=== PATIENT | male | born 1995 | race African-American/Black ===

== ENCOUNTER 2018-08-09 19:40 | Emergency (ER) | payer SELFPAY ==
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
[2018-08-09 20:29] VITALS: BP 147/92
== END 2018-08-09 20:30 | disposition home or self-care (01) ==
LOC: ED 19:40
DX: Z04.1 Encounter for examination and observation following transport accident (principal); Z88.0 Allergy status to penicillin
CPT/HCPCS: 99282

== ENCOUNTER 2019-11-06 11:05 | Emergency (ER) | payer SELFPAY ==
[2019-11-06 11:40] VITALS: BP 158/84
--- NOTE | 2019-11-06 11:49 | UC ---
Cardiac HPI - HPI Summary HPI Summary: This is a 23-year-old -[place] male with a complaint of transient left chest discomfort and dizziness beginning approximately 90 minutes prior to coming to the Urgent Care Center. 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 He noted left upper chest discomfort like a "tight shirt" as he describes it. The area of discomfort was near the clavicle. It was non- radiating. Specifically, the patient denies numbness of the left arm or pain going into the jaw. He denies nausea vomiting or sweating. Subsequent to the chest discomfort, he developed dizziness that resolved when he went outside. The chest discomfort resolved within 30 minutes. The patient denies any significant past medical history c/w cardiac disease. He is obese and does smoke. He denies a history of angina or myocardial infarction. He states that he has had a diagnosis of a heart murmur since he was a child and he thinks this heart murmur has resolved.There is no significant family history of heart disease. He also has a cough. Physical examination shows a obese male who is resting comfortably. He does have a 1/6 systolic ejection murmur. VITAL SIGNS & SaO2 REVIEWED. Within normal limits unless noted here. NURSES NOTE REVIEWED. - History of Current Complaint Chief Complaint: UCChestPain Stated Complaint: CONGESTION COUGH TIGHTNESS Time Seen by Provider: 11/06/19 11:46 Pain Intensity: 0 - Allergy/Home Medications Allergies/Adverse Reactions: Allergies Allergy/AdvReac Type Severity Reaction Status Date / Time Penicillins Allergy Rash Verified 11/06/19 11:37 Home Medications: Home Medications NK [No Home Medications Reported] 11/06/19 [History Confirmed 11/06/19] PMH/Surg Hx/FS Hx/Imm Hx - Additional Past Medical History Additional PMH: PAST MEDICAL HISTORY- CHRONIC and RECURRENT HEALTH PROBLEM LIST REVIEWED. Information relevant to present complaint: history as a child of a heart murmur. VISIT HISTORY REVIEWED. MEDICATIONS & ALLERGIES REVIEWED. HYPERTENSION STATUS: 158/84; not being treated. FAMILY HISTORY: Patient denies family history of: hypertension, cardiovascular disease, stroke, diabetes, cancer. 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 Previously Healthy: Yes Cardiovascular History: Other - heart murmur - Surgical History Surgical History: None - Family History Known Family History: Positive: Hypertension, Diabetes - Social History Occupation: Employed Full-time Alcohol Use: Weekly Substance Use Type: None Type: Cigars Amount Used/How Often: 3 cigar/day Household Exposure Type: Cigars - Immunization History Vaccination Up to Date: Yes Review of Systems All Other Systems Reviewed And Are Negative: Yes Respiratory: Positive: Cough Cardiovascular: Positive: Other - chest discomfort Gastrointestinal: Positive: Negative Is Patient Immunocompromised?: No Physical Exam - Summary Physical Exam Summary: Appearance: The patient is well-appearing, is in no pain or distress, and is well-nourished. Eyes: Conjunctiva are clear. Pupils are equal and reactive to light and accommodation. Extra ocular muscle movement is intact. ENT: The hearing is grossly normal, the pharynx is normal, and the TMs are normal. There is no muffled or hoarse voice. No stridor. Neck: The neck is supple and there is no lymphadenopathy. Respiratory: The chest is non-tender to palpation and without crepitus. The lungs are clear, there are normal breath sounds, and there is no respiratory distress. No wheezes, rales or rhonchi. Cardiovascular: Heart sounds reveal a regular rate and rhythm. There is a 1/6 systolic ejection murmur. There are no carotid bruits or thrills. Circulation is grossly intact. Abdomen: The abdomen is soft and nontender. There is no organomegaly. Bowel sounds are present and within normal limits. No point tenderness at McBurneys point. No CVA tenderness. Musculoskeletal: Strength is intact. The patient moves all extremities. Neurological: The patient is alert. Motor and sensory are examination grossly intact. Speech is normal. Psychological: The patient displays age appropriate behavior, and is conversant. GCS=15. Skin: Negative for rashes. Triage Information Reviewed: Yes Vital Signs: Initial Vital Signs Temp 98.1 F 11/06/19 11:25 Pulse 92 11/06/19 11:25 Resp 18 11/06/19 11:25 BP 158/84 11/06/19 11:25 Pulse Ox 98 11/06/19 11:25 - Assessment/Plan Course Of Treatment: This is a 23-year-old -[place] male with a complaint of transient left chest discomfort and dizziness beginning approximately 90 minutes prior to coming to the Urgent Care Center. 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 He noted left upper chest discomfort like a "tight shirt" as he describes it. The area of discomfort was near the clavicle. It was non- radiating. Specifically, the patient denies numbness of the left arm or pain going into the jaw. He denies nausea vomiting or sweating. Subsequent to the chest discomfort, he developed dizziness that resolved when he went outside. The chest discomfort resolved within 30 minutes. The patient denies any significant past medical history c/w cardiac disease. He is obese and does smoke. He denies a history of angina or myocardial infarction. He states that he has had a diagnosis of a heart murmur since he was a child and he thinks this heart murmur has resolved.There is no significant family history of heart disease. He also has a cough. Physical examination shows a obese male who is resting comfortably. He does have a 1/6 systolic ejection murmur. X RAY: COMPARISON: March 15, 2013 TECHNIQUE: Dual energy PA and lateral views of the chest were obtained. REPORT: #. Large body habitus limits image quality. #. No focal pulmonary lesion, compelling alveolar consolidation, pleural effusion, pneumothorax. #. The heart, pulmonary vasculature, and mediastinal contours are unremarkable. IMPRESSION: #. No evidence for pneumonia. No evidence for acute intrathoracic disease. My diagnosis is transient chest discomfort and dizziness. Possibly a chest wall problem and subsequent anxiety. However, I discussed the possibility of a heart problem, and that he should follow up with his doctor for further evaluation if there is any repeat episode. The patient is comfortable with stable vital signs. - Differential Diagnoses - Chest Pain Differential Diagnosis/HQI/PQRI: Acute ME, Lower Respiratory Infection, Pulmonary Embolism - Clinical Impression Provider Diagnosis: Chest pain Discharge ED - Sign-Out/Discharge Documenting (check all that apply): Patient Departure All imaging exams completed and their final reports reviewed: Yes - Discharge Plan Condition: Stable Disposition: HOME Patient Education Materials: Chest Pain (DC) Forms: *Work Release Referrals: Kitty Zaldivar MD [Primary Care Provider] - Additional Instructions: WE DISCUSSED: PLEASE SEEK CARE AT THE EMERGENCY DEPARTMENT IF SYMPTOMS WORSEN OR IF NEW SYMPTOMS DEVELOP. FOLLOW UP WITH YOUR PRIMARY CARE PHYSICIAN IF CONDITION CONTINUES BEYOND 3 DAYS WITHOUT IMPROVEMENT. YOUR DIAGNOSIS IS: CHEST DISCOMFORT YOUR PRESCRIPTION RECOMMENDATION IS: NONE FOR PAIN AND/OR SLEEP: For pain: Ibuprofen (Motrin and other brand names) 400-600mg PLUS acetaminophen (Tylenol and other brand names) 500mg - 1000mg every 8 hours. As we discussed, follow-up with your regular doctor if this occurs again. However, if you develop more chest pain, shortness of breath, a different kind of chest pain, sweating nausea or vomiting with chest pain, or pain going to her left arm or jaw, call an ambulance and go directly to the emergency department. It does not appear that you have a heart situation. Rest, increase her fluid intake and call me in 2 days if there is any problem or if you have any concerns. Your EKG was normal. - Billing Disposition and Condition Condition: STABLE Disposition: Home
== END 2019-11-06 13:07 | disposition home or self-care (01) ==
LOC: UCEAST 11:05
DX: R07.9 Chest pain, unspecified (principal); R42 Dizziness and giddiness; R01.1 Cardiac murmur, unspecified; E66.9 Obesity, unspecified; F17.290 Nicotine dependence, other tobacco product, uncomplicated; Z88.0 Allergy status to penicillin
CPT/HCPCS: 71046; 93005; 99211; G0463